=== PATIENT | male | born 1955 | race Caucasian/White ===

== ENCOUNTER 2019-05-11 15:18 | Emergency (ER) | payer MEDICARE, OTHER ==
[~2019-05-11] VITALS: Ht 182.9 cm; Wt 204.1 kg
[2019-05-11 16:06] LABS: BASOPHILS ABSOLUTE AUTO 0.09 K/mm3 (0.00-0.23); BASOPHILS PERCENT AUTO 1 % (0-2); EOSINOPHILS ABSOLUTE AUTO 0.29 K/mm3 (0.00-0.68); EOSINOPHILS PERCENT AUTO 2 % (0-6); Hematocrit 46.5 % (37.0-53.0); Hemoglobin 15.5 g/dL (13.5-17.5); IMMATURE GRAN ABSOLUTE AUTO 0.12 K/mm3 (0.00-0.10); IMMATURE GRAN PERCENT AUTO 1 % (0-1); LYMPHOCYTES ABSOLUTE AUTO 1.88 K/mm3 (0.84-5.20); LYMPHOCYTES PERCENT AUTO 14 % (21-46); MONOCYTES ABSOLUTE AUTO 0.99 K/mm3 (0.16-1.47); MONOCYTES PERCENT AUTO 8 % (4-13); Mean Corpuscular HGB Conc 33.3 g/dL (31.5-36.5); Mean Corpuscular Volume 102 fL (80-100); NEUTROPHILS ABSOLUTE AUTO 9.88 K/mm3 (1.96-9.15); NEUTROPHILS PERCENT AUTO 75 % (41-73); Platelet Count 294 K/mm3 (150-400); RDW Coefficient Variation 14.4 % (11.7-14.2); RDW Standard Deviation 54.5 fL (35.1-46.3); Red Blood Cell Count 4.56 M/mm3 (4.30-5.90); White Blood Cell Count 13.25 K/mm3 (4.00-11.30)
[2019-05-11 16:32] LABS: Troponin I <0.015 ng/mL (0.000-0.040)
[2019-05-11 16:33] LABS: Alanine Aminotransfer (ALT/SGP 20 U/L (12-78); Albumin, Blood 3.5 g/dL (3.4-5.0); Albumin/Globulin Ratio 0.9 (0.8-1.8); Alk Phos 101 U/L (50-136); Anion Gap 3 mmol/L (6-16); Aspartate Aminotrans (AST/SGOT 13 U/L (12-37); Bilirubin, Total 0.3 mg/dL (0.1-1.0); Blood Urea Nitrogen 8 mg/dL (8-24); Bun/Creatinine Ratio 12.7 (12.0-20.0); CO2, Blood 30 mmol/L (21-32); Calcium, Blood 8.6 mg/dL (8.5-10.1); Chloride, Blood 93 mmol/L (98-108); Creatinine, Blood 0.63 mg/dL (0.60-1.20); Globulin, Blood 3.8 g/dL (2.2-4.0); Glomerular Filtration Rate >60 (60-); Glucose, Blood 77 mg/dL (70-99); Potassium, Blood 5.1 mmol/L (3.5-5.5); Sodium, Blood 126 mmol/L (136-145); Total Protein, Blood 7.3 g/dL (6.4-8.2)
[2019-05-11] MEDS ORDERED: Vibramycin100 MG PO (18:02)
== END 2019-05-11 18:16 | disposition home or self-care (01) ==
LOC: ER 15:18
PROVIDERS: Physician Assistant
DX: J18.9 Pneumonia, unspecified organism (principal); E03.9 Hypothyroidism, unspecified; Z79.899 Other long term (current) drug therapy; R73.03 Prediabetes
CPT/HCPCS: 71046; 74018; 80053; 83880; 84484; 85025; 93005; 93010; 99284-25

== ENCOUNTER 2020-07-11 14:13 | Emergency (ER) | payer MEDICARE, OTHER ==
[~2020-07-11] VITALS: Ht 182.9 cm; Wt 215.5 kg
[~2020-07-11 14:13] MED LIST: Vibramycin100 MG PO
[2020-07-11] MEDS ORDERED: ATOR40TA PO (14:33)
[2020-07-11] MEDS ORDERED: Flovent 220 Ora12 GM INH (14:34)
[2020-07-11] MEDS ORDERED: Buspirone HCl15 MG PO (14:34)
[2020-07-11] MEDS ORDERED: CONSTULOSE10 GM/155 PO (14:34)
[2020-07-11] MEDS ORDERED: Synthroid/Levo0.2 MG PO (14:35)
[2020-07-11] MEDS ORDERED: GABAPENTIN600 MG PO (14:35)
[2020-07-11] MEDS ORDERED: Methocarbamol500 MG PO (14:35)
[2020-07-11] MEDS ORDERED: FUROSEMIDE40 MG PO (14:35)
[2020-07-11] MEDS ORDERED: ATEN100 PO (14:36)
[2020-07-11] MEDS ORDERED: STIOLTO RESPIMAT4 G1 INH (14:36)
[2020-07-11 16:13] LABS: Alanine Aminotransfer (ALT/SGP 15 U/L (12-78); Albumin, Blood 3.3 g/dL (3.4-5.0); Albumin/Globulin Ratio 0.7 (0.8-1.8); Alk Phos 97 U/L (50-136); Anion Gap 4 mmol/L (6-16); Aspartate Aminotrans (AST/SGOT 16 U/L (12-37); Bilirubin, Total 0.8 mg/dL (0.1-1.0); Blood Urea Nitrogen 8 mg/dL (8-24); Bun/Creatinine Ratio 14.2 (12.0-20.0); CO2, Blood 36 mmol/L (21-32); Calcium, Blood 8.6 mg/dL (8.5-10.1); Chloride, Blood 95 mmol/L (98-108); Creatinine, Blood 0.56 mg/dL (0.60-1.20); Globulin, Blood 4.5 g/dL (2.2-4.0); Glomerular Filtration Rate >60 (60-); Glucose, Blood 95 mg/dL (70-99); Potassium, Blood 4.6 mmol/L (3.5-5.5); Sodium, Blood 135 mmol/L (136-145); Total Protein, Blood 7.8 g/dL (6.4-8.2)
[2020-07-11 16:13] LABS: BASOPHILS ABSOLUTE AUTO 0.05 K/mm3 (0.00-0.23); BASOPHILS PERCENT AUTO 1 % (0-2); EOSINOPHILS ABSOLUTE AUTO 0.14 K/mm3 (0.00-0.68); EOSINOPHILS PERCENT AUTO 2 % (0-6); Hematocrit 42.8 % (37.0-53.0); Hemoglobin 13.3 g/dL (13.5-17.5); IMMATURE GRAN ABSOLUTE AUTO 0.04 K/mm3 (0.00-0.10); IMMATURE GRAN PERCENT AUTO 1 % (0-1); LYMPHOCYTES ABSOLUTE AUTO 0.81 K/mm3 (0.84-5.20); LYMPHOCYTES PERCENT AUTO 10 % (21-46); MONOCYTES ABSOLUTE AUTO 0.57 K/mm3 (0.16-1.47); MONOCYTES PERCENT AUTO 7 % (4-13); Mean Corpuscular HGB 32.8 pg (26.0-34.0); Mean Corpuscular HGB Conc 31.1 g/dL (31.5-36.5); Mean Corpuscular Volume 106 fL (80-100); Mean Platelet Volume 9.3 fL (9.1-12.4); NEUTROPHILS ABSOLUTE AUTO 6.17 K/mm3 (1.96-9.15); NEUTROPHILS PERCENT AUTO 79 % (41-73); Platelet Count 220 K/mm3 (150-400); RDW Coefficient Variation 16.6 % (11.7-14.2); RDW Standard Deviation 65.3 fL (35.1-46.3); Red Blood Cell Count 4.05 M/mm3 (4.30-5.90); White Blood Cell Count 7.78 K/mm3 (4.00-11.30)
== END 2020-07-11 20:10 | disposition home or self-care (01) ==
LOC: ER 14:13
PROVIDERS: Emergency Medicine
DX: I87.8 Other specified disorders of veins (principal); M79.89 Other specified soft tissue disorders; M79.605 Pain in left leg; M79.604 Pain in right leg; Z79.899 Other long term (current) drug therapy
CPT/HCPCS: 71045; 73590; 80053; 83735; 83880; 84484; 85025; 93005; 93010; 93925; 93970; 96374; 99285-25; J2270; J7120

== ENCOUNTER → 2020-08-08 | Outpatient (CLI) | payer MEDICARE ==
[~2020-08-08] MED LIST changes: +ATEN100 PO; +ATOR40TA PO; +Buspirone HCl15 MG PO; +CONSTULOSE10 GM/155 PO; +FUROSEMIDE40 MG PO; +Flovent 220 Ora12 GM INH; +GABAPENTIN600 MG PO; +LIOT5 PO; +Methocarbamol500 MG PO; +STIOLTO RESPIMAT4 G1 INH; +Synthroid/Levo0.2 MG PO
[2020-08-08 17:55] LABS: Hematocrit 40.5 % (37.0-53.0); Hemoglobin 13.9 g/dL (13.5-17.5); Mean Corpuscular HGB 33.1 pg (26.0-34.0); Mean Corpuscular HGB Conc 34.3 g/dL (31.5-36.5); Mean Corpuscular Volume 96 fL (80-100); Mean Platelet Volume 9.1 fL (9.1-12.4); Platelet Count 320 K/mm3 (150-400); RDW Coefficient Variation 14.8 % (11.7-14.2); RDW Standard Deviation 53.1 fL (35.1-46.3); White Blood Cell Count 9.02 K/mm3 (4.00-11.30)
[2020-08-08 19:02] LABS: Alanine Aminotransfer (ALT/SGP 21 U/L (12-78); Albumin, Blood 3.3 g/dL (3.4-5.0); Albumin/Globulin Ratio 0.8 (0.8-1.8); Alk Phos 93 U/L (50-136); Aspartate Aminotrans (AST/SGOT 24 U/L (12-37); Bilirubin, Total 0.7 mg/dL (0.1-1.0); Blood Urea Nitrogen 11 mg/dL (8-24); Bun/Creatinine Ratio 21.6 (12.0-20.0); CO2, Blood 31 mmol/L (21-32); Calcium, Blood 8.2 mg/dL (8.5-10.1); Chloride, Blood 79 mmol/L (98-108); Creatinine, Blood 0.51 mg/dL (0.60-1.20); Globulin, Blood 4.1 g/dL (2.2-4.0); Glomerular Filtration Rate >60 (60-); Glucose, Blood 85 mg/dL (70-99); Potassium, Blood 3.7 mmol/L (3.5-5.5); Total Protein, Blood 7.4 g/dL (6.4-8.2)
[2020-08-08 19:07] LABS: Anion Gap 8 mmol/L (6-16); Sodium, Blood 118 mmol/L (136-145)
== END | disposition home or self-care (01) ==
LOC: LAB SHORT 15:50 → LAB 15:50
PROVIDERS: Family Medicine
DX: I11.0 Hypertensive heart disease with heart failure (principal); I50.9 Heart failure, unspecified; I87.2 Venous insufficiency (chronic) (peripheral); L97.812 Non-pressure chronic ulcer of other part of right lower leg with fat layer exposed; I48.91 Unspecified atrial fibrillation; M19.90 Unspecified osteoarthritis, unspecified site; M51.36 Other intervertebral disc degeneration, lumbar region; E78.2 Mixed hyperlipidemia
CPT/HCPCS: 80053; 83880; 84550; 85027

== ENCOUNTER → 2020-08-10 | Outpatient (CLI) | payer MEDICARE, OTHER ==
[2020-08-10 19:52] LABS: Blood Urea Nitrogen 8 mg/dL (8-24); Bun/Creatinine Ratio 12.7 (12.0-20.0); CO2, Blood 33 mmol/L (21-32); Calcium, Blood 8.2 mg/dL (8.5-10.1); Chloride, Blood 79 mmol/L (98-108); Creatinine, Blood 0.63 mg/dL (0.60-1.20); Glomerular Filtration Rate >60 (60-); Glucose, Blood 116 mg/dL (70-99); Potassium, Blood 3.9 mmol/L (3.5-5.5)
[2020-08-10 20:00] LABS: Anion Gap 7 mmol/L (6-16); Sodium, Blood 119 mmol/L (136-145)
== END ==
LOC: LAB SHORT 17:00
PROVIDERS: Family Medicine
DX: E87.1 Hypo-osmolality and hyponatremia (principal)
CPT/HCPCS: 80048; 83880

== ENCOUNTER 2020-08-11 14:13 | Inpatient (IN) | payer MEDICARE, OTHER ==
[~2020-08-11] VITALS: Ht 175.3 cm; Wt 216.2 kg
[~2020-08-11 14:13] MED LIST changes: -LIOT5 PO
[2020-08-11 14:48] LABS: BASOPHILS ABSOLUTE AUTO 0.04 K/mm3 (0.00-0.23); BASOPHILS PERCENT AUTO 0 % (0-2); EOSINOPHILS ABSOLUTE AUTO 0.05 K/mm3 (0.00-0.68); EOSINOPHILS PERCENT AUTO 1 % (0-6); Hematocrit 40.8 % (37.0-53.0); Hemoglobin 13.9 g/dL (13.5-17.5); IMMATURE GRAN ABSOLUTE AUTO 0.13 K/mm3 (0.00-0.10); IMMATURE GRAN PERCENT AUTO 1 % (0-1); LYMPHOCYTES ABSOLUTE AUTO 1.16 K/mm3 (0.84-5.20); LYMPHOCYTES PERCENT AUTO 12 % (21-46); MONOCYTES ABSOLUTE AUTO 0.72 K/mm3 (0.16-1.47); MONOCYTES PERCENT AUTO 7 % (4-13); Mean Corpuscular HGB Conc 34.1 g/dL (31.5-36.5); Mean Corpuscular Volume 97 fL (80-100); Mean Platelet Volume 8.8 fL (9.1-12.4); NEUTROPHILS ABSOLUTE AUTO 7.93 K/mm3 (1.96-9.15); NEUTROPHILS PERCENT AUTO 79 % (41-73); NRBC ABSOLUTE 0.02 K/mm3 (0.00-0.02); NRBC Auto 0.2 /100 WBC (0.0-0.2); Platelet Count 331 K/mm3 (150-400); RDW Coefficient Variation 14.7 % (11.7-14.2); RDW Standard Deviation 52.9 fL (35.1-46.3); Red Blood Cell Count 4.21 M/mm3 (4.30-5.90); White Blood Cell Count 10.03 K/mm3 (4.00-11.30)
[2020-08-11] MEDS ORDERED: Flovent 220 Ora12 GM INH (14:59)
[2020-08-11] MEDS ORDERED: LIOT5 PO (15:00)
[2020-08-11 15:03] LABS: Base Excess Venous 10.7 mmol/L; Bicarbonate Venous 31.9 mmol/L (24.0-30.0); PCO2 Venous 64.9 mmHg (38-42); pH Blood Venous 7.36 (7.34-7.37)
[2020-08-11 15:16] LABS: Troponin I 0.049 ng/mL (0.000-0.040)
[2020-08-11 15:20] LABS: Alanine Aminotransfer (ALT/SGP 25 U/L (12-78); Albumin, Blood 2.9 g/dL (3.4-5.0); Albumin/Globulin Ratio 0.7 (0.8-1.8); Alk Phos 94 U/L (50-136); Anion Gap 5 mmol/L (6-16); Aspartate Aminotrans (AST/SGOT 36 U/L (12-37); Bilirubin, Total 0.9 mg/dL (0.1-1.0); Blood Urea Nitrogen 7 mg/dL (8-24); Bun/Creatinine Ratio 14.6 (12.0-20.0); CO2, Blood 33 mmol/L (21-32); Calcium, Blood 7.8 mg/dL (8.5-10.1); Chloride, Blood 80 mmol/L (98-108); Creatinine, Blood 0.48 mg/dL (0.60-1.20); Glomerular Filtration Rate >60 (60-); Glucose, Blood 127 mg/dL (70-99); Potassium, Blood 4.3 mmol/L (3.5-5.5); Sodium, Blood 118 mmol/L (136-145); Total Protein, Blood 6.9 g/dL (6.4-8.2)
[2020-08-11 16:32] LABS: Source, Urine Catheter
[2020-08-11 16:43] LABS: Appearance, Urine Hazy (Clear); Blood, Urine 2+ (Neg); Color, Urine Yellow (P-Yellow); Glucose Qualitative, Urine Neg (Neg); Ketones, Urine 1+ (Neg); Leukocyte Esterase, Urine 1+ (Neg); Nitrite, Urine Pos (Neg); Protein, Urine 2+ (Neg); Urobilinogen, Urine 3+ (Normal)
[2020-08-11 16:48] LABS: Bilirubin, Urine 1+ (Neg)
[2020-08-11 16:53] LABS: Bacteria Many /hpf; Squamous Epithelial Cells Few /hpf (Few)
--- NOTE | 2020-08-11 18:45 | NUR ---
ASSUMED CARE RECEIVED REPORT FROM LIZZIE FUNK. PT RESTING QUIETLY, IN NO ACUTE DISTRESS. DENIES NEEDS. CALL LIGHT, POSSESSIONS IN REACH, BED IN LOW POSITION WITH ALARMS ON.
[2020-08-11 20:00] LABS: Troponin I 0.051 ng/mL (0.000-0.040)
--- NOTE | 2020-08-11 21:15 | NUR ---
PT TRANSPORTED VIA GURNEY TO CT SCAN. SUBWAY TRAIN DRIVER NOTIFIED OF PT TRANSPORT.
[2020-08-11 21:59] LABS: International Normalized Ratio 1.19; Prothrombin Time Results 12.7 Sec (9.7-11.5)
--- NOTE | 2020-08-11 22:50 | NUR ---
DR. AJITH ARRINGTON AT THE BEDSIDE, DISCUSSED PLAN OF CARE AND CODE STATUS WITH PT. ORDERS RECEIVED AND ENTERED INTO [facility], PHYSICIAN TO ALSO ENTER ORDERS. THIS NURSE CALLED BY [place] IN PHARMACY REGARDING ORDERS FOR 3% NACL. ORDER CLARIFIED WITH DR. ARRINGTON WHILE AT PT'S BEDSIDE. SECTION 8 PROPERTY MANAGER, CECILLE BARTHOLOMEW ALSO AT BEDSIDE, DISCUSSED THE PLAN TO INFUSE 3% NACL, VERIFIED POLICY REGARDING INFUSION OF ORDERED MEDICATION WITH NURSING LINE MANAGER. AWAITING ICU BED PLACEMENT.
--- NOTE | 2020-08-11 23:50 | NUR ---
REPORT CALLED TO DIXIE Smith DISHWASHER. PT TRANSPORTED VIA BED TO ICU, ALL BELONGINGS SENT WITH PT.
[2020-08-12 03:13] LABS: BASOPHILS ABSOLUTE AUTO 0.03 K/mm3 (0.00-0.23); BASOPHILS PERCENT AUTO 0 % (0-2); EOSINOPHILS ABSOLUTE AUTO 0.09 K/mm3 (0.00-0.68); EOSINOPHILS PERCENT AUTO 1 % (0-6); Hemoglobin 13.2 g/dL (13.5-17.5); IMMATURE GRAN PERCENT AUTO 1 % (0-1); LYMPHOCYTES ABSOLUTE AUTO 1.23 K/mm3 (0.84-5.20); LYMPHOCYTES PERCENT AUTO 12 % (21-46); MONOCYTES ABSOLUTE AUTO 0.79 K/mm3 (0.16-1.47); MONOCYTES PERCENT AUTO 8 % (4-13); Mean Corpuscular HGB 33.3 pg (26.0-34.0); Mean Corpuscular HGB Conc 33.8 g/dL (31.5-36.5); Mean Corpuscular Volume 99 fL (80-100); Mean Platelet Volume 8.4 fL (9.1-12.4); NEUTROPHILS ABSOLUTE AUTO 8.04 K/mm3 (1.96-9.15); NEUTROPHILS PERCENT AUTO 78 % (41-73); NRBC ABSOLUTE 0.02 K/mm3 (0.00-0.02); NRBC Auto 0.2 /100 WBC (0.0-0.2); Platelet Count 291 K/mm3 (150-400); RDW Standard Deviation 54.3 fL (35.1-46.3); Red Blood Cell Count 3.96 M/mm3 (4.30-5.90); White Blood Cell Count 10.28 K/mm3 (4.00-11.30)
[2020-08-12 03:39] LABS: Alanine Aminotransfer (ALT/SGP 22 U/L (12-78); Albumin, Blood 2.7 g/dL (3.4-5.0); Albumin/Globulin Ratio 0.7 (0.8-1.8); Alk Phos 87 U/L (50-136); Anion Gap 1 mmol/L (6-16); Aspartate Aminotrans (AST/SGOT 30 U/L (12-37); Bilirubin, Total 0.8 mg/dL (0.1-1.0); Blood Urea Nitrogen 7 mg/dL (8-24); Bun/Creatinine Ratio 16.1 (12.0-20.0); CO2, Blood 37 mmol/L (21-32); Calcium, Blood 7.8 mg/dL (8.5-10.1); Chloride, Blood 81 mmol/L (98-108); Creatinine, Blood 0.44 mg/dL (0.60-1.20); Globulin, Blood 3.8 g/dL (2.2-4.0); Glomerular Filtration Rate >60 (60-); Glucose, Blood 105 mg/dL (70-99); Potassium, Blood 4.5 mmol/L (3.5-5.5); Sodium, Blood 119 mmol/L (136-145); Total Protein, Blood 6.5 g/dL (6.4-8.2)
--- NOTE | 2020-08-12 07:24 | NUR ---
SHIFT SUMMARY PATIENT SLEPT WELL THROUGH NIGHT. WHEN WOKE UP AT 02:00 FOR NEURO CHECK, PT. WAS LETHARGIC, BUT AFTER SOME STIMULATION WOKE UP FULLY. AT 04:00 HAD TO STERNAL RUB FOR A FEW SECONDS TO GET ORA TO ROUSE. WHEN WE TRANSFERRED PT. TO BARIATRIC BED AT 05:30 ORA WOKE, AGITATED, REPEATEDLY SCREAMING "I CAN'T BREATHE!," INSTRUCTED TO STOP SCREAMING AND TAKE A BREATH, TO NO AVAIL. PT. HEART RATE INCREASED TO 160 BPM, CALLED DR. ONEAL, RECEIVED ORDER FOR 0.25 MG DIGOXIN. PT. NOW CALM, ORIENTED, GAVE MORNING SYNTHROID WITH NO ISSUES. ASSESSMENT IS CHARTED. VSS. WILL CONTINUE TO MONITOR.
--- NOTE | 2020-08-12 10:43 | NUR ---
PT RESTING IN BED. C/O BURNING DISCOMFORT IN LEGS. DR. ARRINGTON AT BEDSIDE ORDERED ONE TIME NORCO AND OK TO TAKE MARLYN BOOTS OFF. CUT THE MARLYN BOOTS OFF FROM FOOT TO ANKLE. RELEASED COBAN ALL THE WAY UP TO THE KNEE. HAS GOOD CAP REFILL. GABAPENTIN GIVEN WITH AM MEDS. PT C/O SOB THAT HAS BEEN PRESENT OVER THE LAST YEAR. WEARS 5L NC AT HOME CONTINUOUSLY. ON 6L HFNC DURING ASSESSMENT. STATES BIPAP HELPS WITH SOB. PLACED BIPAP WITH 10L BLEED IN FOR REST. DIGOXIN GIVEN THIS AM FOR INCREASED HR-AFIB. BUSINESS ARCHITECT WILL CHECK BACK LATER DUE TO HR INCREASED WHILE AT BEDSIDE. REMAINS ON 3% SALINE. WILL HAVE BMP DONE AFTER BAG IS COMPLETE. NO SIGN OF DISTRESS AT THE MOMENT.
--- NOTE | 2020-08-12 18:29 | NUR ---
SUMMARY PT RESTING IN BED. A/O X4. FINISHED 3% SALINE TODAY. NA 122. DR. ARRINGTON OK'D FOR PT TO BE MEDICAL STATUS NOW WITH NS @ 50ML/HR-STARTED. HE WILL PUT ORDERS IN FOR SODIUM TABS TO BE GIVEN. PT HAS BEEN ON NC PART OF THE DAY AT 6L, WHEN HE DOZES TO SLEEP BIPAP M SERIES PLACED WITH 7-10L BLEED IN. PT RECEIVED ONE NORCO TODAY FOR PAIN IN LEGS AND LOW BACK. PT WAS ABLE TO TAKE A NAP AFTER THIS. HE HAS CONSTANT BURNING PAIN TO BLE FROM NEUROPATHY. MARLYN BOOTS REMOVED FROM FEET AND ANKLES FOR PT COMFORT. PT DID NOT WANT THEM COMPLETELY REMOVED TO DUE WEEPING EDEMA. DRESSINGS ARE STILL DRY. NO SIGN OF DISTRESS AT THE MOMENT.
[2020-08-12 20:53] LABS: PCO2 Arterial 82.3 mmHg (35-45); PO2 Arterial 75.5 mmHg (80-100); pH Blood Arterial 7.32 (7.35-7.45)
[2020-08-13 03:18] LABS: BASOPHILS ABSOLUTE AUTO 0.05 K/mm3 (0.00-0.23); BASOPHILS PERCENT AUTO 1 % (0-2); EOSINOPHILS ABSOLUTE AUTO 0.09 K/mm3 (0.00-0.68); EOSINOPHILS PERCENT AUTO 1 % (0-6); Hematocrit 39.1 % (37.0-53.0); Hemoglobin 12.8 g/dL (13.5-17.5); IMMATURE GRAN ABSOLUTE AUTO 0.09 K/mm3 (0.00-0.10); IMMATURE GRAN PERCENT AUTO 1 % (0-1); LYMPHOCYTES ABSOLUTE AUTO 1.09 K/mm3 (0.84-5.20); LYMPHOCYTES PERCENT AUTO 13 % (21-46); MONOCYTES ABSOLUTE AUTO 0.79 K/mm3 (0.16-1.47); MONOCYTES PERCENT AUTO 9 % (4-13); Mean Corpuscular HGB 33.3 pg (26.0-34.0); Mean Corpuscular HGB Conc 32.7 g/dL (31.5-36.5); Mean Corpuscular Volume 102 fL (80-100); Mean Platelet Volume 8.3 fL (9.1-12.4); NEUTROPHILS ABSOLUTE AUTO 6.37 K/mm3 (1.96-9.15); NEUTROPHILS PERCENT AUTO 75 % (41-73); Platelet Count 295 K/mm3 (150-400); RDW Coefficient Variation 15.4 % (11.7-14.2); RDW Standard Deviation 58.2 fL (35.1-46.3); Red Blood Cell Count 3.84 M/mm3 (4.30-5.90); White Blood Cell Count 8.48 K/mm3 (4.00-11.30)
[2020-08-13 03:33] LABS: Anion Gap 1 mmol/L (6-16); Blood Urea Nitrogen 8 mg/dL (8-24); Bun/Creatinine Ratio 16.2 (12.0-20.0); CO2, Blood 40 mmol/L (21-32); Calcium, Blood 7.8 mg/dL (8.5-10.1); Chloride, Blood 83 mmol/L (98-108); Creatinine, Blood 0.49 mg/dL (0.60-1.20); Glomerular Filtration Rate >60 (60-); Glucose, Blood 93 mg/dL (70-99); Potassium, Blood 4.1 mmol/L (3.5-5.5); Sodium, Blood 124 mmol/L (136-145)
[2020-08-13 04:57] LABS: PO2 Arterial 72.4 mmHg (80-100); pH Blood Arterial 7.31 (7.35-7.45)
--- NOTE | 2020-08-13 07:22 | NUR ---
SHIFT SUMMARY ORA HAD AN EVENTFUL NIGHT. UPON ASSESSMENT AT 20:10 PT. WAS LETHARGIC, HAD DIFFICULTY ROUSING. SPENT 5 MINUTES STERNAL RUBBING, JOSTLING IN BED, PINCHING TRAP MUSCLES, ABOUT 2 MINUTES IN ORA WOKE UP, LOOKED AT THIS NURSE, AND EXCALIMED "WHAT?!" AND PROMPTLY FELL BACK ASLEEP. ASKED DR SHEPHERD FOR ABG, CO2 WAS HIGH, RT PLACED PT. ON V60 BIPAP TO MORE CLOSELY MONITOR TIDAL VOLUMES, RESPIRATIONS. THIS NURSE DID NOT SEE A SINGLE TIDAL VOLUME IN THE 700 RANGE, MOSTLY HIGH 800S TO LOW 1000S, NO SIGNIFICANT LEAK, RESPIRATIONS OF ABOUT 20-30. UPON WAKING, ORA'S HEART RATE WAS VERY INCREASED, REACHING HIGH OF 166 BPM, PER DR SHEPHERD GAVE 5 MG METOPROLOL, HAD MINIMAL AFFECT. GAVE 10 MG IVP CARDIZEM, HELD HR WELL UNTIL ABOUT 01:00 AT WHICH POINT STARTED CARDIZEM DRIP AT 5 MG/HR. WHILE PT. WAS TACHYCARDIC COMPLAINED OF SIGNIFICANT SHORTNESS OF BREATH, NO OTHER COMPLAINTS. ORA SLEPT WELL FOR MOST OF THE REST OF NIGHT, UNTIL WOKE UP IN A PANIC, REFUSING TO KEEP BIPAP ON, STARTED PULLING AT LINES, CONFUSED, PER DR ONEAL GAVE 0.5 MG IVP ATIVAN, PT. SLEEPING NOW. ASSESSMENT IS CHARTED. VSS. WILL CONTINUE TO MONITOR.
--- NOTE | 2020-08-13 07:40 | NUR ---
HEATING AND COOLING TECHNICIAN CALLED DR. ARRINGTON FOR PRIMARY NURSE TO INFORM DOCTOR OF PATIENT'S DECREASED LOC AND HIGH ABG PCO2 THIS AM EVEN AFTER WEARING HOSPITAL BIPAP ALL NIGHT. 0750- ORDERS OBTAINED FROM CHILDRESS FOR STAT ABG AND CRITICAL CARE CONSULT. 3110- DR. ARRINGTON IN TO ASSESS PATIENT. UPDATED ON PATIENT STATUS/ CONDITION.
[2020-08-13 08:08] LABS: PO2 Arterial 72.1 mmHg (80-100)
[2020-08-13 08:10] LABS: PCO2 Arterial 90 mmHg (35-45); pH Blood Arterial 7.29 (7.35-7.45)
--- NOTE | 2020-08-13 08:30 | NUR ---
INITIAL ASSESSMENT PATIENT HAS DECREASED LOC THIS AM; MINIMALLY RESPONSIVE. PATIENT DIFFICULT TO AROUSE AND FINALLY WAKES TO NOXIOUS STIMULI. PATIENT DIFFICULT TO KEEP AWAKE. PATIENT NOT RESPONDING TO NURSE QUESTIONS OR MAKING ANY SOUNDS/ WORDS. PATIENT LOCALIZING MOVEMENTS TO PAIN. PATIENT AFEBRILE. NO SIGNS OF PAIN NOTED. LUNGS COARSE THROUGHOUT. PATIENT BIPAP SETTINGS CHANGED THIS AM TO 20/10, 45% FIO2 FOR INCREASED ABG PCO2 LEVELS. PATIENT HAS MOIST, NONPRODUCTIVE COUGH. PATIENT IN A. FIB WITH BBB. HR 80S TO 1-TEENS. SBP 1-TEENS TO 150S. ABDOMEN MODERATELY DISTENDED, SOFT, WITH HYPOACTIVE BS NOTED. DATE OF LAST BM UNKNOWN. CORDOVA IN PLACE DRAINING ORANGE COLORED URINE. PATIENT RECEIVING SCHEDULED LASIX. DRESSINGS REMOVED FROM BLES PER DR. ARRINGTON. CELLULITIS AND FOUL ODOR NOTED TO BLES. BLES DUSKY AND SCALING. PANNUS, GROIN, AND COCCYX REDDENED. CARDIZEM DRIP INFUSING AT 5 MLS/ HOUR, HEPARIN AT 16 UNITS/ KG/ HOUR, NS AT 50 MLS/ HOUR. BED LOW, CALL LIGHT IN REACH. WILL CONTINUE TO MONITOR PATIENT FREQUENTLY THROUGHOUT SHIFT.
[2020-08-13 10:19] LABS: PCO2 Arterial 76.3 mmHg (35-45); PO2 Arterial 82.9 mmHg (80-100); pH Blood Arterial 7.37 (7.35-7.45)
--- NOTE | 2020-08-13 11:59 | NUR ---
DR. AJITH ARRINGTON BACK IN TO SEE PATIENT. INFORMED OF URINE CULTURE RESULTS. ASKED ABOUT CARDIZEM DRIP CONTINUATION. INFORMED THAT PATIENT DID NOT RECEIVE AM PO MEDS BECAUSE OF DECREASED LOC. STATED THAT HE WOULD PUT ORDERS IN REGARDING CARDIZEM DRIP, HR, CELLULITIS, UTI, ETC.
--- NOTE | 2020-08-13 12:30 | NUR ---
PATIENT AFEBRILE. NEURO STATUS MUCH IMPROVED AFTER CHANGING SETTINGS ON BIPAP TO 20/10 AND 45% FIO2 FROM 14/7 AND 45% FIO2. PATIENT CAN BE ANXIOUS AT TIMES. PATIENT NOW ABLE TO COMMUNICATE WITH NURSE. PATIENT CAN STILL BE DIFFICULT TO UNDERSTAND AT TIMES WITH BIPAP MASK ON AND BECAUSE SPEECH SLIGHTLY GARBLED AND SLURRED. PATIENT COOPERATIVE. PATIENT ALERT AND ORIENTED X 3. HR 80S TO 130S. SBP 80S TO 1-TEENS. NO OTHER ACUTE CHANGES TO NOTE ON AT THIS TIME. WILL CONTINUE TO MONTIOR THROUGHOUT SHIFT.
--- NOTE | 2020-08-13 16:00 | NUR ---
PATIENT AFEBRILE. NO SIGNS OR COMPLAINTS OF PAIN. PATIENT ON BIPAP 18/8; PRESSURE DECREASED FOR PATIENT COMFORT. PATIENT REMAINS IN A. FIB WITH BBB. HR 90S TO LOW 100S. SBP LOW 100S TO 120S. BLE DRESSING CHANGE PERFORMED; SEE WOUND ASSESSMENT FOR DETAILS. NO OTHER ACUTE CHANGES TO NOTE ON AT THIS TIME. WILL CONTINUE TO MONITOR.
--- NOTE | 2020-08-13 18:46 | NUR ---
SHIFT SUMMARY PATIENT HAS IMPROVED MUCH THIS SHIFT. PATIENT ABG PCO2 UP TO 90 THIS AM. PRESSURES ON BIPAP INCREASED FROM 14/7 TO 20/10 AND PATIENT MENTATION BEGAN TO IMPROVE. PRESSURES DECREASED LATER TO 18/8 PER PATIENT REQUEST FOR COMFORT. PATIENT IS ON 4 L NC AT THIS TIME AFTER EATING DINNER AND IS NOW SPEAKING ON THE PHONE WITH NO SOB OR DESATTING. PATIENT HAS REMAINED IN A. FIB WITH BBB. HR HAS RANGED FROM 80S TO 130S. SBP RANGED 80S TO 150S. SCHEDULED PO METOPROLOL STARTED THIS SHIFT AND CARDIZEM DRIP DC'D. NO BM THIS SHIFT. GOOD APPETITE. PATIENT RECEIVING SCHEDULED LASIX. CORDOVA DRAINED 2625 MLS OF ORANGE COLORED URINE THIS SHIFT. BLE CELLULITIS CLEANSED, DEBRIDED SOFTLY WITH WASHCLOTH, BACITRACIN OINTMENT, ABD PADS, KERLEX APPLIED. POWDER ORDERED FOR SKIN FOLDS. PATIENT HAD COMPLETE BED BATH THIS SHIFT. HEPARIN DRIP 16 AT BEGINNING OF SHIFT AND NOW AT 18 UNITS/ KG/ HOUR. BLOOD SUGARS 80 TO 95. PATIENT CONTENT AT THIS TIME. BED LOW, CALL LIGHT IN REACH. REPORT WILL BE GIVEN TO ONCOMING MARSHMALLOW MAKER NURSE SHORTLY.
--- NOTE | 2020-08-13 19:15 | NUR ---
ASSUMED CARE OF PT, REPORT RECEIVED. PT IS RESTING QUIETLY RECLINING IN BED, DENIES N/V, DENIES CP/PRESSURE, STATES THAT BREATHING DOES FEEL IMPROVED. HE IS SPEAKING IN FULL SENTENCES, SATS MAINTAINING WITH OXYGEN VIA NASAL CANNULA AT 4 L/MIN, BIPAP WHEN APPLIED IS 18/8 FIO2 45%, LUNGS CLEAR BUT DIM THROUGHOUT, NO VISIBLE INCREASED WORK OF BREATHING AT THIS TIME. AFIB WITH BBB NOTED ON MONITOR, RATE 80-110S AT THIS TIME, PRESSURES MAINTAINING, SKIN PWD WITH EXCEPTION OF LE BILAT WHICH ARE DEEP DUSKY RED WITH DRESSINGS IN PLACE FROM ANKLES TO KNEES BILAT, PT REPORTS STINGING BURNING PAIN RELATED TO CELLULITIS AT THIS TIME. ABD DISTENDED, ACTIVE BOWEL TONES, NO GRIMACING WITH PALPATION. CORDOVA IN PLACE DRAINING COPIOUS AMOUNTS OF CLEAR YELLOW URINE. HEPARIN GTT NOTED AT 18 UNITS/KG/HR RATE IS 47.5 ML/HR. NS AT 50 ML/HR. WILL MONITOR.
[2020-08-14 00:46] LABS: BASOPHILS ABSOLUTE AUTO 0.07 K/mm3 (0.00-0.23); BASOPHILS PERCENT AUTO 1 % (0-2); EOSINOPHILS ABSOLUTE AUTO 0.17 K/mm3 (0.00-0.68); EOSINOPHILS PERCENT AUTO 2 % (0-6); Hematocrit 39.3 % (37.0-53.0); Hemoglobin 12.7 g/dL (13.5-17.5); IMMATURE GRAN ABSOLUTE AUTO 0.07 K/mm3 (0.00-0.10); IMMATURE GRAN PERCENT AUTO 1 % (0-1); LYMPHOCYTES ABSOLUTE AUTO 1.34 K/mm3 (0.84-5.20); LYMPHOCYTES PERCENT AUTO 15 % (21-46); MONOCYTES ABSOLUTE AUTO 0.82 K/mm3 (0.16-1.47); MONOCYTES PERCENT AUTO 9 % (4-13); Mean Corpuscular HGB 33.3 pg (26.0-34.0); Mean Corpuscular HGB Conc 32.3 g/dL (31.5-36.5); Mean Corpuscular Volume 103 fL (80-100); Mean Platelet Volume 8.5 fL (9.1-12.4); NEUTROPHILS PERCENT AUTO 72 % (41-73); Platelet Count 288 K/mm3 (150-400); RDW Coefficient Variation 15.5 % (11.7-14.2); RDW Standard Deviation 58.7 fL (35.1-46.3); Red Blood Cell Count 3.81 M/mm3 (4.30-5.90); White Blood Cell Count 8.87 K/mm3 (4.00-11.30)
[2020-08-14 01:01] LABS: Anion Gap 2 mmol/L (6-16); Blood Urea Nitrogen 8 mg/dL (8-24); Bun/Creatinine Ratio 13.7 (12.0-20.0); CO2, Blood 42 mmol/L (21-32); Calcium, Blood 7.9 mg/dL (8.5-10.1); Chloride, Blood 81 mmol/L (98-108); Creatinine, Blood 0.58 mg/dL (0.60-1.20); Glomerular Filtration Rate >60 (60-); Glucose, Blood 89 mg/dL (70-99); Potassium, Blood 3.7 mmol/L (3.5-5.5); Sodium, Blood 125 mmol/L (136-145)
[2020-08-14 01:02] LABS: International Normalized Ratio 1.2; Prothrombin Time Results 12.8 Sec (9.7-11.5)
--- NOTE | 2020-08-14 05:24 | NUR ---
PT RESTS QUIETLY THROUGHOUT SHIFT, INTERMITTENT CONFUSION IS NOTED JUST AFTER PT AWAKENS AT ASSESSMENT INTERVALS HOWEVER HE REORIENTS WITHIN MOMENTS OF AWAKENING. PAIN TO BILAT LOWER EXTREMITIES CONTINUES HOWEVER IMPROVES WITH FREQUENT POSITION CHANGES FOLLOWING WHICH PT STATES "MUCH BETTER" BUT NO FOLLOW UP PAIN SCORE IS PROVIDED. SATS MAINTAIN 89-MID 90S WITH BIPAP SETTINGS UNCHANGED THROUGHOUT NOC. DOES TOLERATE SHORT BREAKS WELL FOR SIPS AND ORAL CARE. LUNGS REMAIN DIM THROUGHOUT. AFIB WITH BBB CONTINUES, PRESSURES MAINTAINING STABLE, RATE IMPROVED THROUGHOUT NOC. NO GI COMPLAINTS THIS SHIFT, CONT WITH ACTIVE BOWEL TONES, NO GRIMACING WITH PALPATION. URINE DARKENS OVER COURSE OF THIS SHIFT TO DARK YELLOW/ELVIRA AT THIS TIME.
--- NOTE | 2020-08-14 09:29 | NUR ---
ASSUMED CARE FROM NOC RN PT WAS SLEEPING AND RESTFUL DURING REPORT THIS MORNING. PT WOKE UP SOON AFTER AND AGREED TO TAKE MEDICATIONS AND COOPERATE WITH ASSESSMENT. VS STABLE, PT ON BIPAP OR 5-8L VIA NC DEPENDING ON ACTIVITY. PT IS ON BEDREST USING CELING LIFT, REPOSITIONED THIS MORNING AND SAT UP FOR BREAKFAST. PT IS RESTING IN BED AT THIS TIME
--- NOTE | 2020-08-14 12:58 | NUR ---
TRANSFER TO MEDICAL FLOOR PT IS TO TRANSFER TO MEDICAL FLOOR. REPORT GIVEN TO LIZZIE HANSEN. PT VS STABLE, AFIB WITH BBB, PT ON 8L HIGH FLOW NC OR BIPAP V30 SETTINGS AT 18/8 AND 5L BLEED IN. PT IS ALERT AND ORIENTED. PT IS ON BEDREST, LIFT SHEET IN PLACE. LEG WOUNDS PRESENT WITH DRESSINGS IN PLACE, C/D/I. HEPARIN GTT RUNNING AT 18UNITS/KG/HR. DISCHARGE PLANNING WAS NOTIFIED OF DR. HADLEY'S REQUEST FOR HOME AVAP; STEFFANY IS WORKING ON THE QUALIFICATION FOR THIS. PT IS TO BE TRANSFERRED VIA BED AND WILL LEAVE THE UNIT AT APPROXIMATELY 1320
--- NOTE | 2020-08-14 19:59 | NUR ---
SHIFT SUMMARY PT IS AO AND PLEASANT. PT DENIES PAIN, N/V, SOB. PT TRANSFERRED FROM ICU TODAY. TELE RUNNING 130-140 THIS EDMUND AND THIS RN ADMINISTERED IV METOPROLOL PER YOLANDA'S ORDERS. APPETITE IS GOOD. PT DID NOT HAVE VISITORS TODAY. WOUNDS C/D/I. PT IS IN BED, CALL LIGHTIN REACH, BED IN LOW POSITION.
[2020-08-15 05:17] LABS: BASOPHILS ABSOLUTE AUTO 0.07 K/mm3 (0.00-0.23); BASOPHILS PERCENT AUTO 1 % (0-2); EOSINOPHILS ABSOLUTE AUTO 0.21 K/mm3 (0.00-0.68); EOSINOPHILS PERCENT AUTO 2 % (0-6); Hematocrit 39.7 % (37.0-53.0); Hemoglobin 12.7 g/dL (13.5-17.5); IMMATURE GRAN PERCENT AUTO 1 % (0-1); LYMPHOCYTES ABSOLUTE AUTO 1.54 K/mm3 (0.84-5.20); LYMPHOCYTES PERCENT AUTO 17 % (21-46); MONOCYTES PERCENT AUTO 9 % (4-13); Mean Corpuscular HGB 33.2 pg (26.0-34.0); Mean Corpuscular Volume 104 fL (80-100); Mean Platelet Volume 8.7 fL (9.1-12.4); NEUTROPHILS ABSOLUTE AUTO 6.21 K/mm3 (1.96-9.15); NEUTROPHILS PERCENT AUTO 70 % (41-73); Platelet Count 289 K/mm3 (150-400); RDW Coefficient Variation 15.7 % (11.7-14.2); RDW Standard Deviation 60.1 fL (35.1-46.3); Red Blood Cell Count 3.83 M/mm3 (4.30-5.90); White Blood Cell Count 8.93 K/mm3 (4.00-11.30)
[2020-08-15 05:29] LABS: International Normalized Ratio 1.23; Prothrombin Time Results 13.1 Sec (9.7-11.5)
[2020-08-15 06:05] LABS: Anion Gap 2 mmol/L (6-16); Blood Urea Nitrogen 8 mg/dL (8-24); Bun/Creatinine Ratio 15.2 (12.0-20.0); CO2, Blood 42 mmol/L (21-32); Calcium, Blood 7.8 mg/dL (8.5-10.1); Chloride, Blood 82 mmol/L (98-108); Creatinine, Blood 0.53 mg/dL (0.60-1.20); Glomerular Filtration Rate >60 (60-); Glucose, Blood 89 mg/dL (70-99); Magnesium, Blood 1.7 mg/dL (1.6-2.4); Potassium, Blood 3.7 mmol/L (3.5-5.5); Sodium, Blood 126 mmol/L (136-145)
--- NOTE | 2020-08-15 06:39 | NUR ---
SHIFT SUMMARY ALERT, ABLE TO MAKE NEEDS KNOWN. COOPERATIVE WITH CARE. CALLS AND ANSWERS QUESTIONS APPROPRIATELY. NO C/O PAIN/DISCOMFORT. APPEARED TO REST MUCH OF THE NIGHT. BACK AND FORTH BETWEEN HF NC AND BIPAP. PLACED ON BIOX. CONTINUES TO INFUSE HEPARIN TO RFA WITHOUT COMPLICATION WELL IVABX. CONTINUES WITH AFIB VIA TELE RUNNING IN 90-110s. NO ACUTE CHANGES NOTED OVERNIGHT. BED REMAINS IN LOWEST POSITION. CALL LIGHT AND BELONGINGS WITHIN REACH. CONTINUE WITH CURRENT PLAN OF CARE. REPORT TO ONCOMING RN.
--- NOTE | 2020-08-15 09:47 | NUR ---
ADMIT: 08/11/20 DISCHARGE: DX: Symptomatic Hyponatremia, CHF CC: VANNA CALL: RESIDENCE: Home CAREGIVER: Flako Espinosa, Family Member, DX: COPD, HTN, HOLM, Morbid obesity, panic disorder with agoraphobia, see list DME: O2 and equipment CCM: Referral- 04/2020 HOME HEALTH: [facility]- 07/2020 SUMMARY: Admit: 08/11/20 08/15/20- per chart review, there is no ETA for d/c. Ceferino is working on Triligy for pt. Pt may need to have placement at discharge. -roman
--- NOTE | 2020-08-15 18:15 | NUR ---
SUMMARY: Admit: Met with Clinton, feels he needs placement due to unable to care for himself at home, nephew is unable to meet his care needs. We discussed applying for Medicaid. He has disability from SS for about 2000.00 per month. He may be appropriate for Medicaid due to services needed beyond his income level. I will help him apply for medicaid on Friday after I identify if phone or application needed to start. cp 08/15/20- per chart review, there is no ETA for d/c. Ceferino is working on Triligy for pt. Pt may need to have placement at discharge. -roman
--- NOTE | 2020-08-15 18:57 | NUR ---
SHIFT SUMMARY PT A/O; PLEASANT AND COOPERATIVE WITH CARE. ON A HEPARIN DRIP. DRESSING CHANGE TO BLE THIS AM. WORKED WITH P/T AND O/T TODAY AND THEY ARE CURRENTLY RECOMMENDING COOK STARCH PLACEMENT. TELE READING AFIB TODAY WITH PULSE HIGH 140'S. TREATED PER EMR. WILL REPORT TO ONCOMING RN.
--- NOTE | 2020-08-15 19:30 | NUR ---
ASSUMED CARE RECEIVED REPORT FROM LIZZIE MUÑOZ. PT RESTING QUIETLY IN BED, LEGAL LIBRARIAN REPORTING AFIB AVERAGING 130-140'S, TOUCHING 160'S OCCASIONALLY. PT DENIES CP/PRESSURE/SOB. WILL MEDICATE ORDERED. PT DENIES NEEDS AT THIS TIME. CALL LIGHT, POSSESSIONS IN REACH. HEPARIN DRIP VERIFIED AND ONGOING.
--- NOTE | 2020-08-15 20:45 | NUR ---
TRANSFER OF CARE BEDSIDE REPORT GIVEN TO CECILLE BARTHOLOMEW RN. PT TRANSFERRED FROM RM 352 TO RM 364 VIA BED, ALL BELONGINGS SENT WITH PT. HEPARIN DRIP VERIFIED AND ONGOING.
--- NOTE | 2020-08-15 21:13 | NUR ---
PT TRANSFERED FROM 352 TO ROOM 364. PT AAOX2-3 PLEASANT AND COOPERATIVE. DOC SAMUEL GAVE PT IV LOPRESSOR 5MG AT AROUND 1999 FOR HR TRENDING 130-140'S. PER VICE PRESIDENT QUALITY ASSURANCE PT HR STILL AVERAGING 130'S. NOTIFIED HOSPITALIST YOLANDA REGARDING HR. PER YOLANDA, GIVE ANOTHER DOSE OF IV LOPRESSOR IN 40 MINUTES WHEN AVAILABLE AND CALL HER BACK IF HR REMAINS HIGH AFTER THAT.
[2020-08-16 04:28] LABS: BASOPHILS ABSOLUTE AUTO 0.08 K/mm3 (0.00-0.23); BASOPHILS PERCENT AUTO 1 % (0-2); EOSINOPHILS ABSOLUTE AUTO 0.18 K/mm3 (0.00-0.68); EOSINOPHILS PERCENT AUTO 2 % (0-6); Hematocrit 40.3 % (37.0-53.0); Hemoglobin 12.9 g/dL (13.5-17.5); IMMATURE GRAN ABSOLUTE AUTO 0.12 K/mm3 (0.00-0.10); IMMATURE GRAN PERCENT AUTO 1 % (0-1); LYMPHOCYTES ABSOLUTE AUTO 1.39 K/mm3 (0.84-5.20); LYMPHOCYTES PERCENT AUTO 15 % (21-46); MONOCYTES ABSOLUTE AUTO 0.82 K/mm3 (0.16-1.47); MONOCYTES PERCENT AUTO 9 % (4-13); Mean Corpuscular HGB 33.2 pg (26.0-34.0); Mean Corpuscular Volume 104 fL (80-100); Mean Platelet Volume 8.3 fL (9.1-12.4); NEUTROPHILS ABSOLUTE AUTO 6.93 K/mm3 (1.96-9.15); NEUTROPHILS PERCENT AUTO 73 % (41-73); Platelet Count 272 K/mm3 (150-400); RDW Coefficient Variation 15.7 % (11.7-14.2); RDW Standard Deviation 60.7 fL (35.1-46.3); Red Blood Cell Count 3.89 M/mm3 (4.30-5.90); White Blood Cell Count 9.52 K/mm3 (4.00-11.30)
[2020-08-16 04:42] LABS: International Normalized Ratio 1.26; Prothrombin Time Results 13.4 Sec (9.7-11.5)
[2020-08-16 04:57] LABS: Anion Gap 4 mmol/L (6-16); Blood Urea Nitrogen 8 mg/dL (8-24); CO2, Blood 41 mmol/L (21-32); Chloride, Blood 81 mmol/L (98-108); Glomerular Filtration Rate >60 (60-); Glucose, Blood 93 mg/dL (70-99); Sodium, Blood 126 mmol/L (136-145)
--- NOTE | 2020-08-16 05:37 | NUR ---
SENIOR CLINICAL CONSULTANT SUMMARY AT START OF SHIFT PT WAS IN ROOM 352. HR WAS IN THE 130-140'S PER RAG CUTTING MACHINE FEEDER SO FIRST NURSE GAVE IV LOPRESSOR PER EMAR. PT WAS TRANSFERED TO 364 AND RAG CUTTING MACHINE FEEDER REPORTED PT STILL AVG 140'S. SPOKE TO YOLANDA ELIZABETH SHUTTLE BUS DRIVER, SEE PREVIOUS NOTE. AFTER 2ND DOSE OF LOPRESSOR PT HAS BEEN AVERAGING 100-110'S. PT USING BIPAP THROUGH THE NIGHT WITH O2 SATS 88-92%. PT SOMETIMES REMOVES BIPAP MASK AND QUICKLY DESATS TO 70'S. PT IS DISORIENTED AND CONFUSED AT TIMES, ESPECIALLY AFTER WAKING UP. DRESSINGS ON LEGS CHANGED WITH FRESH ABD PADS AND WRAPPED IN CHRIS WRAP TO KEEP IN PLACE. PT HAS BEEN SLEEPING MOST OF THE NIGHT. WILL CONTINUE TO MONITOR.
--- NOTE | 2020-08-16 14:57 | NUR ---
08/16/20 MET WITH ROMAIN PAYAN ELIGIBILITY WILL COME UP AND HELP HIM APPLY FOR MEDICAID, I S/W [place] AT [facility]. APPLICATION COMPLETE AND [employer] WILL BE CONTACTING ORA TO SCHEDULE ASSESSMENT.
--- NOTE | 2020-08-16 18:37 | NUR ---
PATIENT IS ALERT AND ORIENTED WITH TIMES OF CONFUSION. THIS AFTERNOON HE IS PARTICULARLY DISORIENTED AFTER HE WAKES UP FROM A NAP. TELE SHOWS AFIB 114 BPM. THE PATIENT STATED HE THOUGHT HE HAD A HEART ATTACKED THIS AFTERNOON, DR. STEVENS NOTIFIED, VITALS TAKEN AND STABLE. DR. STEVENS ORDERED EKG, WHICH SHOWED AFIB. NO C/O CHEST PAIN. AN ORDER FOR TROPONIN WAS PLACED. WILL CONTINUE TO MONITOR
--- NOTE | 2020-08-17 03:10 | NUR ---
PATIENT VERY ANXIOUS DURING THE EVENING YELLING OUT FOR SOMEONE TO COME INTO HIS ROOM BECAUSE "HE NEEDED TO KNOW SOMEONE WAS THERE". MD NOTIFIED OF PATIENTS ANXIETY AND APPARENT INSOMNIA AND ORDER RECEIVED AND GIVEN FOR MELATONIN AND IV ATIVAN . THIS SEEMED TO CALM PATIENT FOR SEVERAL HOURS. PATIENT WAS EVEN PARTICIPATING IN TURNING PROCESS. AT APPROXIMATELY 0200, PATIENT BEGAN MOANING AND SHAKING HIS RIGHT ARM AND SHOULDER AND WAS DIFFICULT TO AROUSE. HR ON TELEMETRY IN HIGH 130'S WITH A BP OF 152/101. CBG WAS 103. 5MG IV LOPRESSOR GIVEN FOR HR AND BP WITH GOOD RESULT. PATIENT COULD REALLY BENEFIT FROM A BERIATRIC BED.
[2020-08-17 05:02] LABS: BASOPHILS ABSOLUTE AUTO 0.04 K/mm3 (0.00-0.23); BASOPHILS PERCENT AUTO 0 % (0-2); EOSINOPHILS ABSOLUTE AUTO 0.17 K/mm3 (0.00-0.68); EOSINOPHILS PERCENT AUTO 2 % (0-6); Hemoglobin 12.9 g/dL (13.5-17.5); IMMATURE GRAN ABSOLUTE AUTO 0.14 K/mm3 (0.00-0.10); IMMATURE GRAN PERCENT AUTO 2 % (0-1); LYMPHOCYTES PERCENT AUTO 13 % (21-46); MONOCYTES ABSOLUTE AUTO 0.71 K/mm3 (0.16-1.47); MONOCYTES PERCENT AUTO 8 % (4-13); Mean Corpuscular HGB 33.1 pg (26.0-34.0); Mean Corpuscular HGB Conc 31.5 g/dL (31.5-36.5); Mean Corpuscular Volume 105 fL (80-100); Mean Platelet Volume 8.6 fL (9.1-12.4); NEUTROPHILS ABSOLUTE AUTO 6.86 K/mm3 (1.96-9.15); NEUTROPHILS PERCENT AUTO 75 % (41-73); Platelet Count 286 K/mm3 (150-400); RDW Coefficient Variation 15.6 % (11.7-14.2); RDW Standard Deviation 60.5 fL (35.1-46.3); White Blood Cell Count 9.12 K/mm3 (4.00-11.30)
[2020-08-17 05:16] LABS: International Normalized Ratio 1.3; Prothrombin Time Results 13.8 Sec (9.7-11.5)
[2020-08-17 05:21] LABS: Anion Gap 2 mmol/L (6-16); Blood Urea Nitrogen 7 mg/dL (8-24); Bun/Creatinine Ratio 11.2 (12.0-20.0); CO2, Blood 43 mmol/L (21-32); Calcium, Blood 8.4 mg/dL (8.5-10.1); Chloride, Blood 79 mmol/L (98-108); Creatinine, Blood 0.63 mg/dL (0.60-1.20); Glomerular Filtration Rate >60 (60-); Glucose, Blood 97 mg/dL (70-99); Potassium, Blood 4.5 mmol/L (3.5-5.5); Sodium, Blood 124 mmol/L (136-145)
--- NOTE | 2020-08-17 05:53 | NUR ---
Clinton had a rough start to the evening (see nurses note) being very anxious and confused. Yelling out repeatedly for help, then stating he just wanted to be alone. After consulting hospitalist, a combination of melatonin and 1mg iv ativan was given in effort to calm the patient. patient was restful the rest of the night, in fact difficult to arouse at one point. This morning, he is awake, alert to person, place and small pieces of the situation, and carrying on conversations with the nursing staff. Telemetry ranged from A Fib 110's to 140's (IV lopressor was given) back to 110's. No changes in heparin dose which is still running at 18units/kg/hr.
--- NOTE | 2020-08-17 14:50 | NUR ---
PT TRANSFERED TO AIR-BED VIA LIFT FOR COMFORT MEASURES, PT TOLERATED WELL. PILLOWS ELEVATED BY PILLOWS. O2 SATS REMAINED STABLE, NO C/O DYSPNEA.
--- NOTE | 2020-08-17 15:20 | NUR ---
PT MENTIONED PHYSICAL THERAPY WHILE THIS STUDENT RN WAS IN ROOM. THIS STUDENT RN ASKED IF THE PT WAS WANTING TO DO PHYSICAL THERAPY. PT STATED THAT "I DON'T KNOW". THIS STUDENT RN EXPLAINED THE IMPORTANCE OF HIS PHYSICLA THERAPY AND ASKED IF PT WAS WILLING TO TRY MUCH TOLERATED. PT AGREED TO ATTEMPT. RD FROM RT ENTERED PT ROOM AND ASSISTED PT WITH RESISTANCE BAND PUNCHES X5, RESISTANCE BAND ELBOW EXTENSIONS X5, RESISTANCE BAND ELBOW FLEXION X5, KNEE BENDS/STRAIGHTEN X5, AND ANKLE FLEX/EXTEND X5, PT TOLERATED WELL. O2 SATS REMIANED >93% @8L.
--- NOTE | 2020-08-17 18:27 | NUR ---
SHIFT SUMMARY PT A/O X4, CAN BECOME CONFUSED AT TIMES. AT BEGGINING OF SHIFT, PT WOULD CALL OUT LOUDLY INSTEAD OF CALL LIGHT. MOST OF THE SHIFT, PT CALLED APPROPIATELY. VSS. O2 SATS >93% ON 8L THROUGHOUT SHIFT. PT WORKED WITH PHYSICAL THERAPY, SEE THIS STUDENTS NOTES @1520. PT REPOSITIONED PER EMAR.
--- NOTE | 2020-08-17 19:48 | NUR ---
VERY ANXIOUS THIS EVENING. ALREADY CALLING OUT FOR HELP. WHEN ASKED WHAT HE WAS NEEDED, ORA JUST SAID HE "DIDN'T KNOW WHY HE WAS SO MESSED UP, AND JUST NEEDED TO KNOW SOMEONE WAS THERE". TOLD HIM WE WOULD TRY SOMETHING DIFFERENT TONIGHT TO HELP CALM HIM AND LET HIM SLEEP. PATIENT WAS EXTREMELY DIFFICULT TO AROUSE AFTER RECEIVING MELATONIN AND IV ATIVAN 30 MINUTES LATER.
[2020-08-18 06:29] LABS: BASOPHILS ABSOLUTE AUTO 0.04 K/mm3 (0.00-0.23); BASOPHILS PERCENT AUTO 1 % (0-2); EOSINOPHILS ABSOLUTE AUTO 0.18 K/mm3 (0.00-0.68); EOSINOPHILS PERCENT AUTO 2 % (0-6); Hematocrit 41.1 % (37.0-53.0); Hemoglobin 13.1 g/dL (13.5-17.5); IMMATURE GRAN PERCENT AUTO 1 % (0-1); LYMPHOCYTES ABSOLUTE AUTO 1.36 K/mm3 (0.84-5.20); LYMPHOCYTES PERCENT AUTO 16 % (21-46); MONOCYTES ABSOLUTE AUTO 0.76 K/mm3 (0.16-1.47); MONOCYTES PERCENT AUTO 9 % (4-13); Mean Corpuscular HGB 33.4 pg (26.0-34.0); Mean Corpuscular HGB Conc 31.9 g/dL (31.5-36.5); Mean Corpuscular Volume 105 fL (80-100); Mean Platelet Volume 8.7 fL (9.1-12.4); NEUTROPHILS ABSOLUTE AUTO 5.91 K/mm3 (1.96-9.15); NEUTROPHILS PERCENT AUTO 71 % (41-73); Platelet Count 275 K/mm3 (150-400); RDW Coefficient Variation 15.7 % (11.7-14.2); RDW Standard Deviation 60.6 fL (35.1-46.3); Red Blood Cell Count 3.92 M/mm3 (4.30-5.90); White Blood Cell Count 8.35 K/mm3 (4.00-11.30)
[2020-08-18 06:44] LABS: Blood Urea Nitrogen 10 mg/dL (8-24); Calcium, Blood 8.5 mg/dL (8.5-10.1); Chloride, Blood 79 mmol/L (98-108); Creatinine, Blood 0.56 mg/dL (0.60-1.20); Glomerular Filtration Rate >60 (60-); Glucose, Blood 95 mg/dL (70-99); Potassium, Blood 4.8 mmol/L (3.5-5.5); Sodium, Blood 125 mmol/L (136-145)
[2020-08-18 06:56] LABS: International Normalized Ratio 1.52
[2020-08-18 06:59] LABS: Anion Gap Unable to Calculate mmol/L (6-16)
[2020-08-18 07:01] LABS: CO2, Blood >45 mmol/L (21-32)
--- NOTE | 2020-08-18 08:23 | NUR ---
OPTICAL MANUFACTURING TECHNICIAN SUMMARY: PATIENT AGAIN AWAKE ALMOST ALL NIGHT FIGHTING THE BIPAP, CALLING OUT, AND GREATLY DROPPING HIS 02 LEVELS TO LOW TO MID 70'S EACH TIME HE WOULD PULL OFF 02 OR BIPAP. EXTREMELY DIFFICULT TO WAKE EVEN WHILE HE IS PULLING OFF EQUIPMENT. THIS MORNING, PATIENT BEGAN PULLING AT HIS CORDOVA CATHETER. COVERS WERE WRAPPED AROUND HIS HIPS TO PREVENT HIM FROM GETTING HIS HANDS IN THE AREA. NO COMPLAINTS OF PAIN AND PATIENT WOULD WAKE JUST ENOUGH WHEN REPOSITIONED TO THANK STAFF FOR "CHANGING WHERE HE WAS LAYING". POSITIONING CHANGES SEEMED ENOUGH TO AT LEAST TEMPORARILY COMFORTABLE
--- NOTE | 2020-08-18 15:40 | NUR ---
08/18/[address] Clemons, lack of improvement in condition. May need to consider comfort care in future. Dr Clemons s/w nephew by telephone. cp I met with Clinton today to try to move forward with Medicaid interview. He said he is to short of breath to talk on the phone. I will contact [employer] and try to set up appointment. Clinton needs to remain on full face bipap as much as possible to reduce C02. I will need to have apd appointment after Clinton has been on bipap for a significant so he can be off the bipap during interview. cp
--- NOTE | 2020-08-18 16:30 | NUR ---
PT PLEASANT TODAY. IS CONFUSED. ABLE TO ORIENT TO SELF, NOT MUCH ELSE.DOES FOLLOW SOME INST. HAS BEEN ON BIPAP MOST OF DAY. DOES PULL OFF REGULARLY. DESATS VERY QUICKLY. CONTINUES TO BE IN AFIB TODAY. NO NEW CONCERNS NOTED. BED IN LOW POSITION, CALL LITE IN REACH. USES OCCATIONALLY.
--- NOTE | 2020-08-18 17:04 | NUR ---
Met with pt this afternoon after request from staff sonographer. Pt has a long list of comorbidities, with the worst issues appearing to be the morbid obesity, COPD, AFib, and pulmonary hypertension. Pt is attempting to work with therapy and MD, but his prognosis does not look good. He isnt able to come off the bipap for any meaningful length of time. I did attempt to speak with him, but he cut me short and held up 3 fingers, saying, "3 more days". RT thought this likely meant the pt asked for 3 more days before making the decision to go on comfort care or not, as apparently this topic has been brought up, and pt is aware of the poor prognosis. No further discussion at this time. I told the pt I would check on him again on Friday, and he gave me a thumbs up.
--- NOTE | 2020-08-18 18:51 | NUR ---
PT DESATTED POORLY THIS AFT. WHEN OFF BIPAP. DID MUCH BETTER AT DINNER. WAS ABLE TO KEEP ABOVE 90% ON 10 N/C. PT ABLE TO ANSWER MORE CLEARLY ON DATE, AGE, , PRESIDENT. WHERE HE WAS. SO OVERALL, IMPROVEMENT NOTED. HAS BEEN ON BIPAP MOST OF DAY. PLACED AGAIN. PULLING OFF MUCH LESS THIS AFT
[2020-08-19 05:00] LABS: BASOPHILS ABSOLUTE AUTO 0.11 K/mm3 (0.00-0.23); BASOPHILS PERCENT AUTO 1 % (0-2); EOSINOPHILS ABSOLUTE AUTO 0.19 K/mm3 (0.00-0.68); EOSINOPHILS PERCENT AUTO 2 % (0-6); Hematocrit 41.8 % (37.0-53.0); Hemoglobin 13.1 g/dL (13.5-17.5); IMMATURE GRAN ABSOLUTE AUTO 0.12 K/mm3 (0.00-0.10); IMMATURE GRAN PERCENT AUTO 1 % (0-1); LYMPHOCYTES ABSOLUTE AUTO 1.52 K/mm3 (0.84-5.20); LYMPHOCYTES PERCENT AUTO 16 % (21-46); MONOCYTES ABSOLUTE AUTO 1.04 K/mm3 (0.16-1.47); MONOCYTES PERCENT AUTO 11 % (4-13); Mean Corpuscular HGB 32.9 pg (26.0-34.0); Mean Corpuscular HGB Conc 31.3 g/dL (31.5-36.5); Mean Corpuscular Volume 105 fL (80-100); Mean Platelet Volume 8.9 fL (9.1-12.4); NEUTROPHILS PERCENT AUTO 69 % (41-73); Platelet Count 286 K/mm3 (150-400); RDW Coefficient Variation 15.6 % (11.7-14.2); RDW Standard Deviation 61.1 fL (35.1-46.3); Red Blood Cell Count 3.98 M/mm3 (4.30-5.90); White Blood Cell Count 9.58 K/mm3 (4.00-11.30)
[2020-08-19 05:16] LABS: International Normalized Ratio 1.83; Prothrombin Time Results 19.1 Sec (9.7-11.5)
[2020-08-19 05:27] LABS: Alanine Aminotransfer (ALT/SGP 18 U/L (12-78); Albumin/Globulin Ratio 0.7 (0.8-1.8); Alk Phos 90 U/L (50-136); Anion Gap 1 mmol/L (6-16); Aspartate Aminotrans (AST/SGOT 17 U/L (12-37); Bilirubin, Total 0.7 mg/dL (0.1-1.0); Blood Urea Nitrogen 10 mg/dL (8-24); Bun/Creatinine Ratio 19.4 (12.0-20.0); CO2, Blood 42 mmol/L (21-32); Calcium, Blood 8.3 mg/dL (8.5-10.1); Chloride, Blood 81 mmol/L (98-108); Creatinine, Blood 0.52 mg/dL (0.60-1.20); Globulin, Blood 4.1 g/dL (2.2-4.0); Glomerular Filtration Rate >60 (60-); Glucose, Blood 104 mg/dL (70-99); Potassium, Blood 4.9 mmol/L (3.5-5.5); Sodium, Blood 124 mmol/L (136-145); Total Protein, Blood 7.1 g/dL (6.4-8.2)
[2020-08-19 05:28] LABS: PO2 Arterial 106 mmHg (80-100); pH Blood Arterial 7.31 (7.35-7.45)
[2020-08-19 05:29] LABS: PCO2 Arterial 99.6 mmHg (35-45)
--- NOTE | 2020-08-19 06:09 | NUR ---
PHYSICIAN CORRESPONDENCE REPORTED CRITICAL PCO2 PER ABG 99.6. STATED NO NEW ORDERS
--- NOTE | 2020-08-19 06:34 | NUR ---
SHIFT SUMMARY ALERT TO VERBAL STIMULI. ANSWERS QUESTIONS APPROPRIATELY WHILE AWAKE. LETHARGIC. CONFUSED/FORGETFUL AT TIMES. COOPERATIVE WITH CARE. REPOSITIONED. DRSG CHANGED TO BLE. CORDOVA DRAINING TO GRAVITY; CATH CARE PERFORMED. APPEARED TO REST MUCH OF THE NIGHT. REMAINED ON BIPAP FOR ABOUT 85% ON THE SHIFT. HEPARIN CONTINUES TO INFUSE @ 47.5 ML/HR. REPORTED CRITICAL PCO2 TO ON-CALL PROVIDE WITHOUT ANY NEW ORDERS. TELE RUNNING AFIB /c RVR & BBB FROM 100's TO 130s. NOT SUSTAINING IN UPPER NUMBERS. BED REMAINED IN LOWEST POSITION. CALL LIGHT WITHIN REACH; DOES NOT UTILIZED. CONTINUE WITH CURRENT PLAN OF CARE. REPORT TO ONCOMING RN.
--- NOTE | 2020-08-19 11:34 | NUR ---
Spoke with Bedside RN Sangeeta and discussed case. Pt placed on comfort care and may benefit from Palliative Care visit. Dr Clemons has spoken with family already. Pt resting in bed upon arrival. Pt is A&O but appears mildly confused as evidenced by forgetfullness. Pt easily distracted but is also easily redirected. Pt denies pain at this time. Answered some questions and deferred some questions to MD. Engaged in therapeutic discussion regarding comfort care and educated on comfort care philosophy with V/U made by Pt. Pt does appear somewhat fuzzy regarding his condition and options. Offered therapeutic listening and answered questions. Attempted to page Dr Clemons with no return call as of yet. Will discuss case further with Dr Clemons and make supportive call to family. Palliative Care will remain available.
--- NOTE | 2020-08-19 12:39 | NUR ---
PT REPORTED TO SAKINA ELLIS THAT HE WISHED TO HAVE FULL CARE. PT WAS EVALUATED BY RN AND HE VERBALIZED THIS REQUEST TO THIS RN. DR. VALDIVIA WAS NOTIFIED AND REQUESTED THAT HE RE-EVALUATE PT.
--- NOTE | 2020-08-19 15:30 | NUR ---
DESATURATION AT 1500 PT DESATURATED TO 61% AND HAD INCREASED ANXIETY. PT WAS REPOSITIONED FOR EASE OF BREATHING. ROXANOL GIVEN FOR AIR HUNGER. BIPAP PLACED BACK ON INSTEAD OF NASAL CANNULA. DR. VALDIVIA WAS NOTIFIED OF CHANGE IN PT'S CONDITION AND ALSO CONCERN THAT PT REPORTED TO STAFF THAT HE WAS UNSURE IF HE WANTED TO BE ON COMFORT CARE. PT SLIGHTLY CONFUSED WHEN DR. VALDIVIA ROUNDED ON PT. RD FROM PALLIATIVE CARE ALSO NOTIFIED OF CHANGE AND ARRIVED TO SPEAK WITH DR. VALDIVIA. CONCERNS EXPRESSED REGARDING PT'S WISHIES SINCE HE SEEMED UNSURE OF HIS DECISION TO GO ON COMFORT CARE. PT'S BROTHER WAS MADE AWARE THIS MORINING THAT PT WAS PLACED ON COMFORT CARE. PT REMAINS ON COMFORT CARE PER DR. VALDIVIA. PT WAS CONFUSED AT THE TIME DR. VALDIVIA ROUNDED AFTER O2 SATURATIONS IMPROVED.
--- NOTE | 2020-08-19 16:15 | NUR ---
F/U visit this afternoon. Bedside RN Sangeeta reports Pt's saturations dropped and was placed on BIPAP. Dr Clemons in to discussed case. Dr Clemons reports having conversation with Pt's brother Jeffrey on speaker phone along with Pt. Pt and brother both are in agreement with the goal of comfort care. Dr Clemons reports JEOVANNY Arriola listed as son is wrong. Flako is Pt's cousin. Spoke with RT Venu and discussed case. Attempted supportive phone call to Pt's brother Jeffrey and left message. Jeffrey returned phone call why this RN was out of the office. Left another message offering supportive conversation. Palliative Care will remain available.
--- NOTE | 2020-08-19 19:45 | NUR ---
COMFORT CARE STATUS THIS AFTERNOON AT APPROXIMATELY 1630, PT VERBALIZED TO EAGLE SAMUEL THAT HE WISHED TO NO LONGER BE ON COMFORT CARE AND THAT HE WANTED TO TRY TO GET BETTER. A PORTION OF THIS CONVERSATION WAS WITNESS BY THIS RN. EAGLE RN ALSO REPORTED TO THIS RN, WHAT THE PATIENT SAID ABOUT WANTING FULL TREATMENT. NURSING BUILDING INSPECTION ENGINEER VIV WAS NOTIFIED THAT THIS RN HEARD PT VERBALIZE HE WANTED TO CONTINUE WITH TREATMENT, ALSO WITNESSED BY EAGLE SAMUEL AND SAKINA ELLIS. PT REPORTED TO THIS RN THAT HE WANTED TO DO EVERYTHING IN ORDER TO LIVE. THIS RN CLARIFIED THAT HE WANTED CPR, HE VERBALIZED YES, CLARIFIED THAT HE WANTED TO BE INTUBATED PT STATED YES. NURSING BUILDING INSPECTION ENGINEER VIV RN, EAGLE RN, RD DYE RN AND THIS RN DISCUSSED VIA CONFERENCE CALL WHAT PT REPORTED HIS WISHES. DR. VALDIVIA HAD BEEN NOTIFIED EARLIER IN THE DAY THAT PT HAD REQUESTED FULL TREATMENT, PT WAS ALERT AND ORIENTED AT THE TIME HE WAS DISCUSSING FULL CARE WITH STAFF. SINCE AFTER 5PM WHEN CONFERENCE CALL TOOK PLACE RECOMMENDATION FROM VIV SAMUEL WAS TO NOTIFY NOC HOSPITALIST JENNIFER ALBARADO OF PT'S WISHES SINCE HOSPITALIST [facility] FOR [employer] AFTER 5PM. THIS RN NOTIFIED JENNIFER OF PT'S CONTINUED REQUEST FOR FULL TREATMENT. JENNIFER ALBARADO NOTIFIED THAT PT HAS BEEN INTERMITTENTLY CONFUSED BUT CONSISTANTLY VERBALIZES HE WOULD LIKE FULL CARE WHEN AWAKE, ALERT AND ORIENTED. PT WAS ALSO ABLE TO VERBALIZE TO STAFF WHEN ALERT AND ORIENTED THAT HE UNDERSTOOD HE HAD BEEN MADE COMFORT CARE AND DID NOT WANT TO CONTINUE WITH THAT COARSE OF TREATMENT. JENNIFER ALBARADO CONTACTED X2 AFTER CONFERENCE CALL WITH NURSING BUILDING INSPECTION ENGINEER, SECOND CALL PLACED AT 1845. THIS RN REQUESTED THAT COMFORT CARE AND DNR STATUS BE DISCONTINUED PER PT REQUEST. REQUESTED ORDERS PRIOR TO COMFORT CARE BE RESUMED AND LABS BE RE-EVALUATED. ALSO REQUESTED PT BE RE-EVALUATED FOR POSSIBLE NEED OF HIGHER LEVEL OF CARE. JENNIFER ALBARADO STATED TO LEAVE PT DNR/DNI AND COMFORT CARE BUT TO PROVIDE/ENCOURAGE BREATHING TREATMENTS, BIPAP AND CONTINOUS OXIMETRY. HE ALSO REPORTED THAT HE WOULD BE UP TO EVALUATE THE PT AT SOME POINT TO MAKE FURTHER DECISIONS. PHONE CALL X2 TO JENNIFER ALBARADO TO DISCUSS CONCERNS THAT PT VERBALIZED THAT HE WANTED FULL CARE AND THAT HE WAS AROUSABLE AND ORIENTED AT THE TIME HE REQUESTED FULL CARE. VIV NURSING BUILDING INSPECTION ENGINEER NOTIFIED OF ORDERS FROM JENNIFER ALBARADO AND REQUESTED THAT HE CALL AND DISCUSS CONCERNS/ PLAN OF CARE WITH
--- NOTE | 2020-08-19 20:15 | NUR ---
COMFORT CARE CURRENTLY ON 10L HF NC WITH CONT. BIOX. ENCOURAGED TO BREATH IN THROUGH NOSE AND OUT THROUGH MOUTH WHICH REALLY HELPS WITH DYSPNEA. REPOSITIONED WITH LINEN CHANGE. CORDOVA CATHETER PATENT AND DRAINING TO GRAVITY. OFFERED WATER. NO ACUTE CHANGES AT THIS TIME. BED REMAINS IN LOWEST POSITION. CALL LIGHT WITHIN REACH; DOES NOT UTILIZE
--- NOTE | 2020-08-19 20:15 | NUR ---
CONSULT WITH ON-CALL PROVIDER PER ANGELES IN WITH EXTENSIVE DISSCUSION ABOUT WHAT COMFORT CARE WOULD MEAN FOR PATIENT. NEPHEW CONSULT WELL. PATIENT A/O X3 DURING MEETING AND AGREEABLE TO REMAINING ON COMFORT CARE T/O THE NIGHT WITH RESPIRATORY TREATMENTS AND USAGE OF BIPAP WITH CONT BIOX. PATIENT AWARE OF WHAT DNR/DNI STATUS WOULD MEAN FOR HIM AT THIS POINT AND AGREEABLE. GOING FORWARD WITH CURRENT PLAN OF CARE AND WILL SPEAK TO ATTENDING TOMORROW 08/20/20.
--- NOTE | 2020-08-19 20:17 | NUR ---
SHIFT SUMMARY PT HAS CONTINUED TO HAVE RESPIRATORY ISSUES. PT REPORTED HE WOULD LIKE FULL CARE (SEE NOT REGARDING COMFORT CARE). PT HAS BEEN ENCOURAGED TO USE BIPAP T/O THE DAY AND HAS BEEN MOSTLY COMPLIANT. THE ONLY TIME PT HAS REMOVED BIPAP IS WHEN WAKING UP FROM SLEEP, PT REORIENTS EASILY AND IS LEAVES BIPAP IN PLACE WITH REMINDERS. PT HAS BEEN A MAX ASSIST WITH LIFT FOR REPOSITIONING. PAIN AND AIR HUNGER MANAGED WITH ROXANOL. HIGH FLOW NASAL CANULA WHEN PT IS EATING MEALS. HR IRREGULAR AND ELEVATED, TELE DC'D EARLIER TODAY. O2 SATURATION STABLE WHEN PT ON BIPAP. PT TOLERATES HIGH FLOW NC FOR SHORT PERIODS OF TIME THEN NEEDS BIPAP. REPORT GIVEN TO JAY JAY SAMUEL.
--- NOTE | 2020-08-19 22:15 | NUR ---
COMFORT CARE CONTINUES WITH 10L HF NC. CONT BIOX. REPOSITIONED. DRSGS CHANGED TO BLE; APPEAR TO BE HEALING. OFFERED HYDRATION AND SNACK; AGREEABLE. NO ACUTE CHANGES AT THIS TIME. CORDOVA CATH PATENT AND DRAINING TO GRAVITY. BED IN LOWEST POSITION. CALL LIGHT AND BELONGINGS WITHIN REACH; DOES NOT UTILIZE. CALLS OUT FOR HELP AT TIMES
--- NOTE | 2020-08-20 00:15 | NUR ---
COMFORT CARE APPEARS TO BE RESTING. CURRENTLY ON BIPAP WITH O2 BLEED. CONT BIOX IN PLACE. NO ACUTE NEEDS AT THIS TIME. BED IN LOWEST POSITION. CALL LIGHT AND BELONGINGS WITHIN REACH. CONTINUE WITH CURRENT PLAN OF CARE
--- NOTE | 2020-08-20 02:20 | NUR ---
COMFORT CARE APPEARS TO BE RESTING AT THIS TIME WITHOUT ANY NEEDS. BIPAP IN PLACE WITH O2 BLEED. CORDOVA PATENT AND DRAINING TO GRAVITY. BED REMAINS IN LOWEST POSITION. CALL LIGHT AND BELONGINGS WITHIN REACH. CONTINUE WITH CURRENT PLAN OF CARE.
--- NOTE | 2020-08-20 04:15 | NUR ---
COMFORT CARE APPEARS TO BE RESTING ON BIPAP WITHOUT ANY NEEDS AT THIS TIME. BED REMAINS IN LOWEST POSITION. CALL LIGHT AND BELONGINGS WIHTIN REACH. CONTINUE WITH CURRENT PLAN OF CARE.
--- NOTE | 2020-08-20 05:44 | NUR ---
SHIFT SUMMARY A/O, ABLE TO MAKE NEEDS KNOWN. COOPERATIVE WITH CARE. ANSWERS QUESTIONS APPROPRIATELY. NO C/O PAIN/DISCOMFORT. APPEARED TO REST T/O NIGHT ON BIPAP. NO EVENTS NOTED OF DESATURATION. DRSGS TO BLE CHANGED; SHOWING SIGNS OF IMPROVEMENT. VSS/AFEBRILE. NO ACUTE CHANGES NOTED OVERNIGHT. BED REMAINED IN LOWEST POSITION. CALL LIGHT AND BELONGINGS WITHIN REACH; DOES NOT UTILIZE CALL SYSTEM. WILL CRY OUT AT TIMES FOR HELP. CONTINUE WITH CURRENT PLAN OF CARE. REPORT TO ONCOMING RN.
--- NOTE | 2020-08-20 06:15 | NUR ---
COMFORT CARE DID NOT WANT TO WAKE UP. OPENED EYES AND ACKNOWLEDGED, BUT WENT RIGHT BACK TO SLEEP. REPOSITIONED. CATH CARE COMPLETED. REMAINS ON BIPAP WITH CONT BIOX IN PLACE. APPEARS TO BE RESTING WITHOUT ANY NEEDS AT THIS TIME. BED IN LOWEST POSITION. CALL LIGHT AND BELONGINGS WITHIN REACH. CONTINUE WITH CURRENT PLAN OF CARE.
--- NOTE | 2020-08-20 07:45 | NUR ---
ASSESSMENT: PT SLEEPING AT THIS TIME. BIPAP IN PLACE. RESP E/U. SATS STABLE. CONT BIOX IN PLACE. PT HAS NO S/S DISTRESS. CALL LIGHT IN REACH. WILL ALLOW REST AND FULLY ASSESS WHEN AWAKE.
--- NOTE | 2020-08-20 12:14 | NUR ---
Pt resting in bed upon arrival. Pt wearing O2 via NC during my visit. Engaged in therapeutic listening as Pt attempts to relay discussion he had with MD this AM. Pt struggles with memory and is fuzzy with recall of important points of conversation. Pt struggles with finding correct words that he is trying to convey. Re-enforced education of options with Pt still struggling with comprehension. Pt agreeable to place BIPAP back on. RT Venu arrives to assit. Spoke with Bedside LIZZIE Killian and discussed case. Palliative Care will remain available.
--- NOTE | 2020-08-20 17:31 | NUR ---
AIR HUNGER: ROXANOL GIVEN PER COMFORT CARE ORDERS. PT HAS AIR HUNGER AND IS TAKING OFF BIPAP AND NC. WILL MONITOR EFFECTIVENESS.
--- NOTE | 2020-08-20 18:41 | NUR ---
PT HAS BEEN INCREASINGLY CONFUSED AND AGITATED THIS SHIFT. PT UNABLE TO KEEP NC OR BIPAP ON FOR SIGNIFICANT AMT OF TIME. PT CALLS OUT AND IS HAVING DELUSIONS. MEDICATED WITH ATIVAN AND ROXINOL PER COMFORT CARE ORDERS. PT ON AIR BED. TURNED TOLERATED. REQUIRES LIFT FOR MOST CARE. PT HAD BATH THIS AFTERNOON. DRESSINGS ON LEGS REPLACED THIS AM PER ORDERS. PT REMAINS ON COMFORT CARE. NEPHEW IN TO VISIT THIS AFTERNOON.
--- NOTE | 2020-08-21 06:46 | NUR ---
WINDOWS SECURITY ANALYST SUMMARY NO ACUTE CHANGES THIS SHIFT. PT REMAINS ON COMFORT CARE. MINIMALLY RESPONSIVE, CAN ANSWER SOME YES/NO QUESTIONS. PT GETS ANXIOUS AT TIMES AND WILL RIP OFF HIS BIPAP/NC. MEDICATED WITH ATIVAN IV FOR ANXIETY WHICH HELPED PT RELAX AND KEEP HIS BIPAP ON THROUGH THE NIGHT. WILL CONTINUE TO MONITOR.
--- NOTE | 2020-08-21 09:55 | NUR ---
PATIENT At approximately 954, this RN was called into room by SPECIAL EVENTS PLANNER and Hide Selector RE patient not breathing. Upon entering, patient had no respirations. Checked apical pulse, this was also absent. Pulled Dr. Cosme in for a second person confirmation. Time of @ 954. Sister Melia was notified by this RN and Nephew Waldo notified by Dr. Cosme. No family present at time of . repossession agentLIZZIE Arteaga and Nursing Sup Moshe notified. As of now, no home picked out yet. Jenni will f/u with family regarding home selection. Post-mortum care completed and personal belongings bagged which included clip board, phone, necklace chain, two chargers, tech pad, 3 rings, and a robe.
--- NOTE | 2020-08-21 15:11 | NUR ---
Unable to discharge patient from computer with correct time of expiration. Correct time is [id number] 08/21/2020
== END 2020-08-21 15:09 ==
LOC: ER 14:13 → ICUW 17:08 → PCU 17:08 → MEDS 18:48 → ICUW 08-12 00:23 → MEDS 08-14 14:08 → SURS 08-21 12:13
PROVIDERS: Emergency Medicine; Family Medicine; Internal Medicine; Internal Medicine Gastroenterology; Pharmacist; ADMIT Family Medicine
PROC: 5A09557 Assistance with Respiratory Ventilation, Greater than 96 Consecutive Hours, Continuous Positive Airway Pressure (ICD-10-PCS; principal; 2020-08-11)
DX: I11.0 Hypertensive heart disease with heart failure (principal); I21.A1 Myocardial infarction type 2; J96.21 Acute and chronic respiratory failure with hypoxia; J96.22 Acute and chronic respiratory failure with hypercapnia; G92 Toxic encephalopathy; E87.1 Hypo-osmolality and hyponatremia; L03.116 Cellulitis of left lower limb; E66.2 Morbid (severe) obesity with alveolar hypoventilation; N39.0 Urinary tract infection, site not specified; E87.3 Alkalosis; Z68.43 Body mass index [BMI] 50.0-59.9, adult; Z51.5 Encounter for palliative care; I50.33 Acute on chronic diastolic (congestive) heart failure; J44.9 Chronic obstructive pulmonary disease, unspecified; Z66 Do not resuscitate; I48.91 Unspecified atrial fibrillation; F40.00 Agoraphobia, unspecified; E78.5 Hyperlipidemia, unspecified; M19.90 Unspecified osteoarthritis, unspecified site; G89.29 Other chronic pain; I27.20 Pulmonary hypertension, unspecified; E78.00 Pure hypercholesterolemia, unspecified; T50.2X5A Adverse effect of carbonic-anhydrase inhibitors, benzothiadiazides and other diuretics, initial encounter; E87.5 Hyperkalemia; F41.8 Other specified anxiety disorders; I45.10 Unspecified right bundle-branch block; D53.9 Nutritional anemia, unspecified; B95.4 Other streptococcus as the cause of diseases classified elsewhere; D52.9 Folate deficiency anemia, unspecified; K21.9 Gastro-esophageal reflux disease without esophagitis; E11.42 Type 2 diabetes mellitus with diabetic polyneuropathy; E03.9 Hypothyroidism, unspecified; I87.2 Venous insufficiency (chronic) (peripheral); Z99.81 Dependence on supplemental oxygen; Z98.890 Other specified postprocedural states; Z98.52 Vasectomy status; Z87.891 Personal history of nicotine dependence; Z79.899 Other long term (current) drug therapy
CPT/HCPCS: 36415; 36600; 51702; 70450; 71045; 80048; 80053; 81001; 82533; 82607; 82746; 82803; 82947; 83735; 83880; 83930; 83935; 84295; 84300; 84443; 84484; 84550; 85025; 85027; 85610; 85730; 87086; 93005; 93010; 93306; 94640; 94660; 94762; 97110; 97163; 97167; 97530; 99285-25; A9270; J0690; J1160; J1644; J1940; J2060; J2920; J7030; J7050